=== PATIENT | female | born 1955 | race Two or more races ===

== ENCOUNTER 2022-12-07 12:06 | Emergency (ER) | payer SELFPAY ==
[~2022-12-07] VITALS: Ht 157.5 cm; Wt 63.5 kg
[2022-12-07 14:53] VITALS: BP 120/64
[2022-12-07] MEDS ORDERED: methylPREDNISolone SOD SUCC 125 MG/2 ML VL IM ONE (15:00)
[2022-12-07] MEDS ORDERED: KETOROLAC TROMETH 30 MG/ML 1ML VIAL IM ONE (15:00)
[2022-12-07] MEDS ORDERED: LIDO5PAD8 EX (15:42)
[2022-12-07] MEDS ORDERED: CYCL-837 PO (15:42)
[2022-12-07] MEDS ORDERED: ACET1CAP14 PO (15:42)
== END 2022-12-07 15:59 | disposition home or self-care (01) ==
LOC: ER 12:06
DX: S39.012A Strain of muscle, fascia and tendon of lower back, initial encounter (principal); M54.32 Sciatica, left side; X50.0XXA Overexertion from strenuous movement or load, initial encounter; Y93.89 Activity, other specified; Y92.89 Other specified places as the place of occurrence of the external cause; Y99.8 Other external cause status
CPT/HCPCS: 72100; 73502; 96372; 99284; J1885; J2930